=== PATIENT | male | born 1960 | race Caucasian/White ===

== ENCOUNTER 2017-10-11 15:23 | Outpatient (CLI) | payer OTHER | END 2017-10-11 15:24 | disposition home or self-care (01) | LOC: DTY/OP 15:23 | PROVIDERS: ATTEND Surgery | DX: G47.30 Sleep apnea, unspecified (principal) | CPT/HCPCS: 97802 ==

== ENCOUNTER 2017-11-12 10:56 | Outpatient (CLI) | payer OTHER | END 2017-11-12 10:57 | disposition home or self-care (01) | LOC: DTY/OP 10:56 | PROVIDERS: ATTEND Surgery | DX: G47.30 Sleep apnea, unspecified (principal) | CPT/HCPCS: 97802 ==

== ENCOUNTER 2017-12-17 14:42 | Outpatient (CLI) | payer OTHER | END 2017-12-17 14:43 | disposition home or self-care (01) | LOC: DTY/OP 14:42 | PROVIDERS: ATTEND Surgery | DX: G47.30 Sleep apnea, unspecified (principal) | CPT/HCPCS: 97802 ==

== ENCOUNTER 2018-01-14 12:44 | Outpatient (CLI) | payer OTHER ==
--- NOTE | 2018-01-14 14:15 | RAD ---
CHEST 2 VIEWS: Date: 01/14/18 HISTORY: Preop. COMPARISON: 10/31/13. FINDINGS: Cardiac silhouette and pulmonary vasculature are unremarkable. Mediastinum is midline. Hiatal hernia is best demonstrated on the frontal view and is stable. There is no confluent air space consolidation , parenchymal mass, or pleural fluid apparent. Degenerative changes of thoracic spine on lateral view . IMPRESSION: Small hiatal hernia, stable. POS: [facility]
[2018-01-14 14:19] LABS: #Basophils 0.1 thou/uL (0.0-0.2); #Eosinphils 0.1 thou/uL (0.0-0.7); #Lymphocytes 2.4 thou/uL (1.20-3.40); #Monocytes 0.7 thou/uL (0.11-0.59); #Neutrophils 3.5 thou/uL (1.40-6.50); %Basophils 0.8 % (0.0-1.0); %Eosinophils 1.1 % (0.0-10.0); %Lymphocytes 35.4 % (21.0-51.0); %Monocytes 10.4 % (0.0-10.0); %Neutrophils 52.2 % (42.0-75.0); Hemoglobin 15.3 g/dL (14.0-18.0); Mean Corpuscular HGB CONC 33.3 g/dL (32.0-36.0); Mean Corpuscular Hemoglobin 29.3 pg (27.0-31.0); Mean Corpuscular Volume 87.9 fl (80.0-94.0); Mean Platelet Volume 8.3 fL (7.4-10.4); Platelet Count 212 thou/uL (130-400); RBC Distribution Width 13.1 % (11.5-14.5); Red Blood Cell (RBC) Count 5.24 mill/uL (4.70-6.10); White Blood Cell (WBC) Count 6.7 thou/uL (4.8-10.8)
[2018-01-14 14:37] LABS: ALT (SGPT) 21 U/L (8-55); AST (SGOT) 15 U/L (5-34); Albumin 4.2 g/dL (3.5-5.0); Alkaline Phosphatase 47 U/L (40-150); Anion Gap 12 mmol/L (10-20); BUN (Urea Nitrogen) 20 mg/dL (8.4-25.7); Bilirubin, Direct 0.2 mg/dL (0.1-0.3); Bilirubin, Total 0.4 mg/dL (0.2-1.2); Calc. Creatinine Clearance 0 mL/min (70-130); Calcium 9.6 mg/dL (7.8-10.44); Carbon Dioxide 23 mmol/L (22-29); Chloride 106 mmol/L (98-107); Estimated GFR-MDRD 71; Globulin 3.4 g/dL (2.4-3.5); Glucose 89 mg/dL (70-105); Protein, Total 7.6 g/dL (6.0-8.3); Sodium 137 mmol/L (136-145)
== END 2018-01-14 12:45 | disposition home or self-care (01) ==
LOC: LABBT 12:44
PROVIDERS: ATTEND Surgery
DX: Z01.818 Encounter for other preprocedural examination (principal); Z01.812 Encounter for preprocedural laboratory examination; E66.01 Morbid (severe) obesity due to excess calories; K44.9 Diaphragmatic hernia without obstruction or gangrene
CPT/HCPCS: 71046; 80053; 80076; 83036; 85025

== ENCOUNTER 2018-01-14 14:00 | Inpatient (IN) | payer OTHER ==
[2018-01-18] MEDS ORDERED: CEFAZOLIN/Water 2 GM/20 ML SYRINGE ONE (08:37)
[2018-01-18] MEDS ORDERED: Heparin 5,000 UNITS/ML VIAL ONE (08:37)
[2018-01-18] MEDS ORDERED: Fentanyl 250 MCG/5 ML VIAL ONE ×2 (11:06→13:21)
[2018-01-18] MEDS ORDERED: Midazolam HCl 2 mg/2 ml Vial ONE (11:07)
[2018-01-18] MEDS ORDERED: Bupivacaine/Epinephrine 0.25% 30 ML VIAL ONE (11:08)
[2018-01-18] MEDS ORDERED: Promethazine HCl 25 MG/ML VIAL ONE (13:23)
[2018-01-18] MEDS ORDERED: Promethazine HCl 25 MG/ML VIAL SLOW IVP PRN (13:45)
[2018-01-18] MEDS ORDERED: Promethazine HCl 25 MG/ML VIAL IM PRN ×3 (13:45→15:20)
[2018-01-18] MEDS ORDERED: Ondansetron HCl/PF 4 MG/2 ML Vial IVP PRN ×3 (13:45→15:20)
[2018-01-18] MEDS ORDERED: Zolpidem Tartrate 5 MG TAB PO PRN (13:46)
[2018-01-18] MEDS ORDERED: Naloxone HCl 0.4 mg/ml Vial IV PRN (13:46)
[2018-01-18] MEDS ORDERED: diphenhydrAMINE 25 MG CAP PO PRN (13:46)
[2018-01-18] MEDS ORDERED: diphenhydrAMINE 50 MG/ML VIAL IVP PRN ×2 (13:46→15:20)
[2018-01-18] MEDS ORDERED: HYDROmorphone 10 mg/100 ml CADD IVPB PRN (13:46)
[2018-01-18] MEDS ORDERED: diphenhydrAMINE 50 MG/ML VIAL IM PRN (13:46)
[2018-01-18] MEDS ORDERED: Communication Order-Pharmacy FS SCH (14:00)
[2018-01-18] MEDS ORDERED: PHENYLEPHRINE-NS 100 MCG/ML 10 ML SYRINGE ONE (14:37)
[2018-01-18] MEDS ORDERED: Lidocaine 1% PF 5 ML VIAL ONE (14:37)
[2018-01-18] MEDS ORDERED: Succinylcholine Chloride 20 MG/ML 10 ml SYRINGE FS ONE (14:37)
[2018-01-18] MEDS ORDERED: Propofol 200 MG/20 ML VIAL ONE (14:37)
[2018-01-18] MEDS ORDERED: Dexamethasone 20 MG/5 ML VIAL ONE (14:37)
[2018-01-18] MEDS ORDERED: Ketorolac Tromethamine 30 MG/ML VIAL ONE (14:37)
[2018-01-18] MEDS ORDERED: Ondansetron HCl/PF 4 MG/2 ML Vial ONE (14:37)
[2018-01-18] MEDS ORDERED: Glycopyrrolate 0.2 MG/ML 5 ML SYRINGE ONE (14:37)
[2018-01-18] MEDS ORDERED: ePHEDrine/0.9% NaCl/PF SYRINGE 50 mg/10 ml ONE (14:37)
[2018-01-18] MEDS ORDERED: Dextrose 5% in Water 1,000 ML IV PRN (15:20)
[2018-01-18] MEDS ORDERED: Hydrocodone-Acetamin 15 ML UDCUP PO PRN (15:20)
[2018-01-18] MEDS ORDERED: Dextrose 50% Abboject 50 ML SYRINGE SLOW IVP PRN (15:20)
[2018-01-18] MEDS ORDERED: hydrALAZINE 20 MG/ML VIAL SLOW IVP PRN (15:20)
[2018-01-18] MEDS: D5 1/2 NS w/20 mEq KCL 1,000 ML IV SCH (17:25)
[2018-01-18] MEDS: Acetaminophen 1,000 MG in Premix Bag 1 BAG IVPB SCH (17:26)
--- NOTE | 2018-01-18 20:39 | EKG ---
Test Reason : PREOP Blood Pressure : / mmHG Vent. Rate : 066 BPM Atrial Rate : 066 BPM P-R Int : 138 ms QRS Dur : 092 ms QT Int : 392 ms P-R-T Axes : 060 048 039 degrees QTc Int : 410 ms Normal sinus rhythm Nonspecific T wave abnormality Abnormal ECG When compared with ECG of 08-APR-2017 09:06, No significant change was found Confirmed by KATELYNN STEIN, SJailyn ([id number]) on 01/18/2018 8:39:16 PM Referred By: TIFFANY Confirmed By:DR. Beronica PACE MD
[2018-01-18] MEDS ORDERED: Enoxaparin Sodium 40 MG/0.4 ML SYRINGE SC SCH (21:00)
[2018-01-19] MEDS: D5 1/2 NS w/20 mEq KCL 1,000 ML IV SCH (00:25)
[2018-01-19] MEDS: Acetaminophen 1,000 MG in Premix Bag 1 BAG IVPB SCH ×2 (00:53→06:12)
[2018-01-19 05:30] LABS: #Lymphocytes 1.3 thou/uL (1.20-3.40); #Monocytes 1.2 thou/uL (0.11-0.59); #Neutrophils 8.6 thou/uL (1.40-6.50); %Basophils 0.1 % (0.0-1.0); %Eosinophils 0.2 % (0.0-10.0); %Lymphocytes 11.4 % (21.0-51.0); %Neutrophils 77.4 % (42.0-75.0); Hemoglobin 14.6 g/dL (14.0-18.0); Mean Corpuscular HGB CONC 33.1 g/dL (32.0-36.0); Mean Corpuscular Hemoglobin 29.4 pg (27.0-31.0); Mean Corpuscular Volume 88.7 fl (80.0-94.0); Mean Platelet Volume 8.4 fL (7.4-10.4); Platelet Count 252 thou/uL (130-400); RBC Distribution Width 12.9 % (11.5-14.5); Red Blood Cell (RBC) Count 4.99 mill/uL (4.70-6.10); White Blood Cell (WBC) Count 11.1 thou/uL (4.8-10.8)
[2018-01-19 05:40] LABS: Anion Gap 11 mmol/L (10-20); BUN (Urea Nitrogen) 15 mg/dL (8.4-25.7); Calc. Creatinine Clearance 122 mL/min (70-130); Calcium 9.2 mg/dL (7.8-10.44); Carbon Dioxide 26 mmol/L (22-29); Chloride 103 mmol/L (98-107); Estimated GFR-MDRD 64; Glucose 120 mg/dL (70-105); Potassium 3.9 mmol/L (3.5-5.1); Sodium 136 mmol/L (136-145)
[2018-01-19] MEDS ORDERED: Pantoprazole 40 MG VIAL IVP SCH (09:00)
[2018-01-19] MEDS ORDERED: GASTROGRAFIN 30 ML BOT ONE (09:38)
--- NOTE | 2018-01-19 09:39 | RAD ---
15 CC GASTROGRAFIN SWALLOW: Date: 01-19-18 Comparison: None. History: Evaluate for leak or obstruction following gastric sleeve procedure. FINDINGS: Patient ingested 15 cc of Gastrografin and the contrast media was followed from the distal esophagus through the proximal small bowel/duodenum. There is no evidence for leak or obstruction. IMPRESSION: No evidence for leak or obstruction following gastric sleeve procedure. POS: [facility]
[2018-01-19 12:14] VITALS: BMI 39.4
[2018-01-19 12:17] VITALS: BP 166/96; TEMP 97.6
--- NOTE | 2018-01-19 13:32 | DIS ---
DATE OF ADMISSION: 01/18/2018 DATE OF DISCHARGE: 01/19/2018 ADMISSION DIAGNOSES: Morbid obesity and hiatal hernia. DISCHARGE DIAGNOSES: Morbid obesity and hiatal hernia. PROCEDURES: 1. Sleeve gastrectomy with EGD. 2. Hiatal hernia repair without mesh or fundoplication. STAFF: Dr. Stephan Mills. HOSPITAL COURSE: The patient was admitted to the regular floor postop. He had liquids postop immedi ately, which he tolerated without difficulty. Postop day #1, swallow showed a repair of hiatal herni a. No evidence of leakage along the staple line. On postop day #1, he is discharged to home. Presc riptions called in for pantoprazole 40 mg a day, Lortab elixir and ondansetron. He will follow up wi th me in 2 weeks.
--- NOTE | 2018-01-19 14:08 | OP ---
PREOPERATIVE DIAGNOSIS: Morbid obesity. POSTOPERATIVE DIAGNOSES: 1. Morbid obesity with body mass index of 41. 2. Hiatal hernia. PROCEDURES: 1. Laparoscopic sleeve gastrectomy with Daphne staple line reinforcements and 38 [place] bougie. 2. Hiatal hernia repair without fundoplication. SURGEON: Stephan Mills M.D. ANESTHESIA: General. ESTIMATED BLOOD LOSS: Minimal. COMPLICATIONS: None. SPECIMEN: Stomach. FINDINGS: Normal postoperative EGD. PROCEDURE IN DETAIL: The patient was taken to the operating room table and placed supine on the oper ating room table. After general anesthetic was obtained, his arms and legs are double strapped to ba riatric table. OG tube was used to decompress the stomach. The abdomen was shaved, prepped and drap ed in a sterile fashion. Left subcostal 5-mm Optiview trocar was placed in the usual fashion and hig h-flow pneumoperitoneum was obtained. Left and right abdominal 12-mm ports as well as a right subcos thu 5-mm port were placed under direct visualization. A 5 mm incision made at the xiphoid and the Domonique annsen retractor was used to raise the liver off the GE junction. The patient was found to have a h iatal hernia. The short gastrics were taken down from a distance of 5 cm proximal to the pylorus all the way to the angle of His. The posterior fundus, angle of His and left ronit of the diaphragm was completely dissected. The mediastinal space is entered just medial to the left ronit. The gastrohepa tic ligament is opened and the right ronit of the diaphragm opened to reveal the mediastinum. Circumf erential dissection of the esophagus is performed. The stomach is brought back down into the abdomin al cavity under no tension. Ethibond suture and the tie knot system used to close the crura posterio rly. This was done after a 38 bougie is brought in and its tip left in the antrum of the stomach. C are is taken to avoid making the esophageal hiatus too tight. Multiple loads of an [place] stapling device used to form the sleeve. The first is fired up at a distance of 5 cm proximal to the pylorus angled up towards the incisura. Multiple loads were then fired up along the bougie and the stomach i s completely transected at the angle of His. The stomach was removed from left abdominal incision. This fascial defect closed using GraNee needle 0 Vicryl tie. All port sites were infiltrated using l ocal anesthetic. EGD scope was passed into the esophagus, stomach to the level of duodenum without o bstruction. There is no stricture or stenosis at the incisura. There is no evidence of too much zach nosis at the esophageal hiatus. EGD scope was used to decompress the stomach. It is pulled and suraj zacarias. The Nathansen retractor was removed under direct visualization without bleeding. All ports are removed under direct visualization without bleeding and pneumoperitoneum was let down. All incision s were irrigated and closed using 4-0 Monocryl and Dermabond. The patient was en route to recovery i n stable condition. All instrument counts, needle counts, lap counts are correct.
== END 2018-01-19 14:10 | disposition home or self-care (01) | DRG 621 ==
LOC: SURG A 01-18 08:01
PROVIDERS: ADMIT Surgery; ATTEND Surgery
PROC: 0DB64Z3 Excision of Stomach, Percutaneous Endoscopic Approach, Vertical (ICD-10-PCS; principal; 2018-01-18)
PROC: 0BQT4ZZ Repair Diaphragm, Percutaneous Endoscopic Approach (ICD-10-PCS; 2018-01-18)
DX: E66.01 Morbid (severe) obesity due to excess calories (principal); K44.9 Diaphragmatic hernia without obstruction or gangrene; Z68.41 Body mass index [BMI] 40.0-44.9, adult
CPT/HCPCS: 36415; 74241; 80048; 85025; 88307; 88312; 93005; 93010; C9113; J0131; J1100; J1644; J1650; J1885; J2001; J2250; J2405; J2550; J2704; J3010